=== PATIENT | female | born 1970 | race Two or more races ===

== ENCOUNTER 2017-12-29 13:59 | Emergency (ER) | payer OTHER ==
[~2017-12-29] VITALS: Ht 160 cm; Wt 56.7 kg
[2017-12-29 13:59] VITALS: BP 128/87
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
== END 2017-12-29 14:41 | disposition home or self-care (01) ==
LOC: ER 14:00
DX: S00.461A Insect bite (nonvenomous) of right ear, initial encounter (principal); H60.11 Cellulitis of right external ear; L08.9 Local infection of the skin and subcutaneous tissue, unspecified; W57.XXXA Bitten or stung by nonvenomous insect and other nonvenomous arthropods, initial encounter; Y93.89 Activity, other specified; Y92.89 Other specified places as the place of occurrence of the external cause; Y99.8 Other external cause status
CPT/HCPCS: A4606; Z7610

== ENCOUNTER 2018-04-03 21:25 | Emergency (ER) | payer OTHER ==
[~2018-04-03] VITALS: Ht 160 cm; Wt 54.4 kg
--- NOTE | 2018-04-03 21:36 | NUR ---
Pt BIBRA FROM HOME. C/O SUBSTERNAL SHARP CP, NON-RADIATING. C/O N, BUT NO V/D. Pt DENIES HX OF PREVIOUS ANXIETY/PANIC ATTACKS. Pt BEEING SEEN BY MD AT BEDSIDE.
--- NOTE | 2018-04-03 21:45 | NUR ---
EKG BEING DONE AT BEDSIDE
--- NOTE | 2018-04-03 21:52 | NUR ---
Pt IS REFUSING IV ACCESS AND FOR LAB DRAWS. Pt IS REQUESTING FOR ORAL PAIN MEDS.
[2018-04-03] MEDS ORDERED: HYDROCODONE/APAP 5/325MG 1 EACH TABLET ONE (21:53)
[2018-04-03] MEDS ORDERED: ONDANSETRON 4 MG TAB.RAPDIS ONE (21:53)
[2018-04-03] MEDS ORDERED: ONDANSETRON 4 MG TAB.RAPDIS PO ONE (22:00)
[2018-04-03] MEDS ORDERED: HYDROCODONE/APAP 5/325MG 1 EACH TABLET PO ONE (22:00)
--- NOTE | 2018-04-03 22:00 | NUR ---
cxr done at bedside.
--- NOTE | 2018-04-03 23:05 | NUR ---
pt finally agreed to getting iv access. started on iv RAC #20g. labs drawn & collected.
[2018-04-03] MEDS ORDERED: MORPHINE SULFATE INJ 4 MG/ML DISP.SYRIN ONE (23:20)
[2018-04-03 23:24] LABS: HEMATOCRIT 32 % (33-45); HEMOGLOBIN 11.1 g/dL (11.5-14.8); MEAN CORPUSCULAR HEMOGLOBIN 29 PG (26.0-33.0); MEAN CORPUSCULAR HGB CONC 34 g/dl (31.0-36.0); MEAN CORPUSCULAR VOLUME 83 fL (82-100); NEUTROPHILS % (AUTO) 66.4 % (43.0-81.0); PLATELET COUNT (AUTO) 264 /CMM (150-450); RDW COEFFICIENT OF VARIATION 14.7 (11.5-15.0); RED BLOOD CELL COUNT(AUTO) 3.89 MIL/uL (4.0-5.2); WHITE BLOOD COUNT (AUTO) 9.2 K/uL (4.3-11.0)
[2018-04-03 23:25] LABS: BASOPHILS % (AUTO) 0.7 % (0.0-2.0); EOSINOPHILS % (AUTO) 0.6 % (0.0-6.0); MONOCYTES % (AUTO) 5.3 % (2.0-12.0)
[2018-04-03 23:26] LABS: CARBON DIOXIDE 26 mmol/L (21-32); CHLORIDE 104 mmol/L (98-107); CREATININE 0.9 mg/dL (0.6-1.3); GLUCOSE 143 mg/dL (74-106); POTASSIUM 3.7 mmol/L (3.5-5.1); SODIUM SERUM 139 mmol/L (136-145); UREA NITROGEN, BLOOD 11 mg/dL (7-18)
--- NOTE | 2018-04-03 23:28 | NUR ---
morphine 4mg iv given on rac #20g.
[2018-04-03] MEDS ORDERED: MORPHINE SULFATE INJ 2 MG/ML DISP.SYRIN IV ONE (23:30)
[2018-04-03 23:31] LABS: TROPONIN I < 0.017 ng/mL (0.00-0.056)
[2018-04-03 23:37] LABS: INR 0.96 (0.87-1.13)
--- NOTE | 2018-04-03 23:53 | NUR ---
per pa order added BNP for labs. called lab to add bnp.
[2018-04-04 00:13] LABS: ALANINE AMINOTRANSFERASE 34 U/L (12-78); ALBUMIN 3.5 g/dL (3.4-5.0); ALKALINE PHOSPHATASE 82 U/L (46-116); ASPARTATE AMINOTRANSFERASE 15 U/L (15-37); BILIRUBIN,TOTAL 0.4 mg/dL (0.2-1.0); TOTAL PROTEIN, SERUM 7.4 g/dL (6.4-8.2)
--- NOTE | 2018-04-04 00:57 | NUR ---
pt refused to give urine sample
--- NOTE | 2018-04-04 01:20 | NUR ---
Patient discharged to home in stable condition. Written and verbal after care instructions given to pt & family. Patient & family verbalizes understanding of instruction. pt instructed not to drive. will be taking pt back home. pt dc'd via wheelchair, safely transported to car by staff.
[2018-04-04 02:15] VITALS: BP 122/82
== END 2018-04-04 01:20 | disposition home or self-care (01) ==
LOC: ER 21:29
DX: R07.2 Precordial pain (principal); F41.9 Anxiety disorder, unspecified
CPT/HCPCS: 36415; 71045; 80048; 80076; 83880; 84484; 85025; 85730; 93005; 96374; 99285; A4606; J2270; Q0162; Z7610; 81000-TC; 84703-TC

== ENCOUNTER 2018-09-26 14:54 | Emergency (ER) | payer OTHER ==
[~2018-09-26] VITALS: Ht 157.5 cm; Wt 60.3 kg
[2018-09-26 15:04] VITALS: BP 147/100
[2018-09-26] MEDS ORDERED: IBUPROFEN 600 MG TABLET PO ONE ×2 (15:30→15:50)
[2018-09-26] MEDS ORDERED: predniSONE 20 MG TABLET PO ONE (16:30)
[2018-09-26] MEDS ORDERED: predniSONE 20 MG TABLET ONE (16:54)
== END 2018-09-26 17:00 | disposition home or self-care (01) ==
LOC: ER 14:58
DX: J03.90 Acute tonsillitis, unspecified (principal); J40 Bronchitis, not specified as acute or chronic
CPT/HCPCS: 71045; 87880; 99284; A4606; J7512; Z7610; 86403-TC

== ENCOUNTER 2018-10-03 22:26 | Emergency (ER) | payer MEDICAID, OTHER ==
[~2018-10-03] VITALS: Ht 160 cm; Wt 59.0 kg
--- NOTE | 2018-10-03 22:41 | NUR ---
PT [id number] C/O L SIDED CP X30 MINS [employer], WITH 3 EPISODES TODAY. THE FIRST 2 EPISODES RESOLVED SPONTANEOUSLY BUT THIS EPISODE IS THE MOST SEVERE. PT IS MOANING, CRYING. REPORTS PAIN IS SHARP STABBING 10/10 RADIATING TO L ARM, RELIEVED WITH PRESSURE TO THE CHEST WALL, AND IS ACCOMPANIED BY NAUSEA AND MILD SOB. PT REPORTS SOB IS D/T THE SEVERITY OF THE PAIN. SKIN WARM DRY. IN ER BED 09 ON MONITOR.
[2018-10-03] MEDS ORDERED: NITROGLYCERIN PACKET 1 GM PACKET ONE (22:54)
[2018-10-03] MEDS ORDERED: ACETAMINOPHEN ES 500 MG TABLET ONE (22:54)
[2018-10-03] MEDS ORDERED: NITROGLYCERIN 0.4 MG/TAB BOTTLE ONE (22:54)
[2018-10-03] MEDS ORDERED: ASPIRIN 81 MG TAB.CHEW ONE (22:54)
[2018-10-03 22:55] LABS: BASOPHILS # (AUTO) 0.1 /CMM (0.0-0.2); BASOPHILS % (AUTO) 0.8 % (0.0-2.0); EOSINOPHILS % (AUTO) 0.6 % (0.0-6.0); HEMATOCRIT 36 % (33-45); HEMOGLOBIN 11.9 g/dL (11.5-14.8); LYMPHOCYTES # (AUTO) 3.3 /CMM (0.8-4.8); LYMPHOCYTES % (AUTO) 25.5 % (20.0-44.0); MEAN CORPUSCULAR HGB CONC 34 g/dl (31.0-36.0); MEAN CORPUSCULAR VOLUME 81 fL (82-100); MONOCYTES # (AUTO) 0.6 /CMM (0.1-1.30); MONOCYTES % (AUTO) 4.3 % (2.0-12.0); NEUTROPHILS # (AUTO) 8.8 /CMM (1.8-8.9); NEUTROPHILS % (AUTO) 68.8 % (43.0-81.0); PLATELET COUNT (AUTO) 308 /CMM (150-450); RED BLOOD CELL COUNT(AUTO) 4.39 MIL/uL (4.0-5.2); WHITE BLOOD COUNT (AUTO) 12.9 K/uL (4.3-11.0)
[2018-10-03] MEDS ORDERED: LORAZEPAM INJ 2 MG/ML VIAL ONE (22:55)
[2018-10-03] MEDS ORDERED: LORAZEPAM INJ 2 MG/ML VIAL IV ONE (23:00)
[2018-10-03] MEDS ORDERED: NITROGLYCERIN 0.4 MG/TAB BOTTLE SL ONE (23:00)
[2018-10-03] MEDS ORDERED: ASPIRIN 81 MG TAB.CHEW PO ONE (23:00)
[2018-10-03] MEDS ORDERED: NITROGLYCERIN PACKET 1 GM PACKET TD ONE (23:00)
[2018-10-03] MEDS ORDERED: ACETAMINOPHEN ES 500 MG TABLET PO ONE (23:00)
[2018-10-03 23:06] LABS: CALCIUM, SERUM 8.6 mg/dL (8.5-10.1); CARBON DIOXIDE 27 mmol/L (21-32); CHLORIDE 102 mmol/L (98-107); GLUCOSE 184 mg/dL (74-106); POTASSIUM 3.6 mmol/L (3.5-5.1); SODIUM SERUM 137 mmol/L (136-145); UREA NITROGEN, BLOOD 16 mg/dL (7-18)
--- NOTE | 2018-10-03 23:15 | NUR ---
PT REPORTS ADEQUATE PAIN RELIEF AT THIS TIME. RESTING QUIETLY, ON MONITOR.
[2018-10-03 23:19] LABS: ALANINE AMINOTRANSFERASE 24 U/L (12-78); ALBUMIN 3.7 g/dL (3.4-5.0); ALKALINE PHOSPHATASE 110 U/L (46-116); ASPARTATE AMINOTRANSFERASE 10 U/L (15-37); B-TYPE NATRIURETIC PEPTIDE 25 PG/ML (0-125); BILIRUBIN,TOTAL 0.3 mg/dL (0.2-1.0); TOTAL PROTEIN, SERUM 7.2 g/dL (6.4-8.2)
--- NOTE | 2018-10-03 23:50 | NUR ---
PT REPORTS INCREASE IN CHEST PAIN AT TIHS TIME. NITRO SL X1 ADMINISTERED, PER INITIAL ORDER, ONLY 1 TAB WAS INITIALLY ADMINISTERED.
--- NOTE | 2018-10-04 00:08 | NUR ---
PT RESTING QUIETLY, NAD NOTED, WITH DAUGHTER AT BEDSIDE
--- NOTE | 2018-10-04 01:43 | NUR ---
NAD NOTED, RESTING QUIETLY. NETWORK MGR AT BEDSIDE FOR REPEAT TROPONIN
--- NOTE | 2018-10-04 02:41 | NUR ---
IV removed. Catheter intact and site benign. Pressure and 4x4 applied to site. No bleeding noted. Patient discharged to home in stable condition. Written and verbal after care instructions given. Patient verbalizes understanding of instruction. AMBULATORY STEADY GAIT. INSTRUCTED NOT TO DRIVE. PROVIDED WITH COPIES OF LABS, XRAY, EKG PER PT AND FAMILY REQUEST.
[2018-10-04 02:42] VITALS: BP 145/76
== END 2018-10-04 02:42 | disposition home or self-care (01) ==
LOC: ER 22:27
DX: R07.89 Other chest pain (principal); F41.9 Anxiety disorder, unspecified
CPT/HCPCS: 36415; 71045-TC; 80048-TC; 80076-TC; 83880; 84484-TC; 84702-TC; 85025-TC; J2060

== ENCOUNTER 2019-07-10 21:31 | Emergency (ER) | payer MEDICAID ==
[~2019-07-10] VITALS: Ht 162.6 cm; Wt 63.5 kg
[2019-07-10 21:53] VITALS: BP 117/79
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
--- NOTE | 2019-07-10 22:15 | NUR ---
SHAMA SPECNE AT BEDSIDE FOR EVAL.
[2019-07-10] MEDS ORDERED: FAMOTIDINE (20 MG) 20 MG TABLET ONE (22:25)
[2019-07-10] MEDS ORDERED: predniSONE 20 MG TABLET ONE (22:26)
[2019-07-10] MEDS ORDERED: FAMOTIDINE (20 MG) 20 MG TABLET PO ONE (22:30)
[2019-07-10] MEDS ORDERED: predniSONE 50 MG TABLET PO ONE (22:30)
--- NOTE | 2019-07-10 22:30 | NUR ---
Patient discharged to home in stable condition. Written and verbal after care instructions given. Patient verbalizes understanding of instruction.
== END 2019-07-10 22:31 | disposition home or self-care (01) ==
LOC: ER 21:37
DX: L50.9 Urticaria, unspecified (principal)
CPT/HCPCS: 99283; J7512

== ENCOUNTER 2019-07-11 12:25 | Emergency (ER) | payer MEDICAID, OTHER ==
[~2019-07-11] VITALS: Ht 160 cm; Wt 63.0 kg
[2019-07-11] MEDS ORDERED: diphenhydrAMINE HCL 50 MG/ML VIAL IM ONE (13:00)
[2019-07-11] MEDS ORDERED: diphenhydrAMINE HCL 50 MG/ML VIAL ONE (13:08)
--- NOTE | 2019-07-11 13:25 | NUR ---
PATIENT AWAKE ALERT NOTED BODY RASHES LUNGS CLEAR NO DISTRESS MEDICATED BENADRYL 50 IM
[2019-07-11 13:45] VITALS: BP 132/85
--- NOTE | 2019-07-11 14:03 | NUR ---
Patient discharged to home in stable condition. Written and verbal after care instructions given. Patient verbalizes understanding of instruction.
== END 2019-07-11 13:52 | disposition home or self-care (01) ==
LOC: ER 12:25
DX: L50.0 Allergic urticaria (principal); R07.89 Other chest pain
CPT/HCPCS: 96372; 99283; J1200

== ENCOUNTER 2022-09-17 12:38 | Emergency (ER) | payer OTHER ==
[~2022-09-17] VITALS: Ht 157.5 cm; Wt 59.0 kg
[2022-09-17 12:50] VITALS: BP 168/97
[2022-09-17] MEDS ORDERED: PENICILLIN G BENZATHINE 2.4 MMU/4 ML ML IM ONE ×2 (13:00→13:14)
[2022-09-17] MEDS ORDERED: DEXAMETHASONE SOD PHOSPHATE 10 MG/ML VIAL MC ONE (13:00)
[2022-09-17] MEDS ORDERED: PRED20TA PO (13:02)
[2022-09-17] MEDS ORDERED: KETO10TA2 PO (13:02)
[2022-09-17] MEDS ORDERED: DEXAMETHASONE SOD PHOSPHATE 10 MG/ML VIAL ONE (13:13)
--- NOTE | 2022-09-17 13:32 | NUR ---
medicated as ordered.
== END 2022-09-17 13:32 | disposition home or self-care (01) ==
LOC: ER 12:51
DX: J02.9 Acute pharyngitis, unspecified (principal); Z79.899 Other long term (current) drug therapy
CPT/HCPCS: 99283; 96372; J0558; J1100

== ENCOUNTER 2023-11-24 08:58 | Emergency (ER) | payer MEDICAID, OTHER ==
[~2023-11-24] VITALS: Ht 157.5 cm; Wt 54.4 kg
[~2023-11-24 08:58] MED LIST: KETO10TA2 PO; PRED20TA PO
[2023-11-24] MEDS ORDERED: KETOROLAC TROMETHAMINE 15 MG/ML VIAL ONE (09:29)
[2023-11-24] MEDS ORDERED: LIDOCAINE 5% (PATCH) 1 EA PATCH TP ONE (09:29)
[2023-11-24] MEDS ORDERED: CYCLOBENZAPRINE 10 MG TABLET ONE (09:30)
[2023-11-24] MEDS: LIDOCAINE 5% (PATCH) 1 EA PATCH TP STA (09:31)
[2023-11-24] MEDS ORDERED: ACETAMINOPHEN 325 MG TABLET ONE (09:33)
[2023-11-24] MEDS: KETOROLAC TROMETHAMINE 15 MG/ML VIAL IM ONE (09:43)
[2023-11-24] MEDS: CYCLOBENZAPRINE 10 MG TABLET PO ONE (09:44)
[2023-11-24] MEDS: ACETAMINOPHEN 325 MG TABLET PO ONE (09:44)
[2023-11-24] MEDS ORDERED: LIDO30AD10 TP (10:02)
[2023-11-24] MEDS ORDERED: CYCL5TAB PO (10:02)
[2023-11-24] MEDS ORDERED: IBUP-1955 PO (10:02)
[2023-11-24 12:01] VITALS: BP 108/74; TEMP 98; O2SAT 100
== END 2023-11-24 12:01 | disposition home or self-care (01) ==
LOC: ER 09:09
DX: S83.91XA Sprain of unspecified site of right knee, initial encounter (principal); S20.212A Contusion of left front wall of thorax, initial encounter; M54.6 Pain in thoracic spine; W01.0XXA Fall on same level from slipping, tripping and stumbling without subsequent striking against object, initial encounter; Y93.89 Activity, other specified; Y92.89 Other specified places as the place of occurrence of the external cause; Y99.8 Other external cause status
CPT/HCPCS: 99284; 73564; 71100; J1885

== ENCOUNTER 2025-01-17 21:00 | Emergency (ER) | payer MEDICAID ==
[~2025-01-17] VITALS: Ht 160 cm; Wt 56.7 kg
[~2025-01-17 21:00] MED LIST changes: +CYCL5TAB PO; +IBUP-1955 PO; +LIDO30AD10 TP
[2025-01-17 21:12] VITALS: BP 145/89; TEMP 98; O2SAT 97
[2025-01-17] MEDS ORDERED: HYDR-4303 PO (21:20)
== END 2025-01-17 21:26 | disposition home or self-care (01) ==
LOC: ER 21:12
DX: M25.512 Pain in left shoulder (principal); G89.29 Other chronic pain; M54.12 Radiculopathy, cervical region; Z79.52 Long term (current) use of systemic steroids